=== PATIENT | male | born 1950 | race Two or more races ===

== ENCOUNTER 2022-10-31 20:37 | Inpatient (IN) | payer OTHER ==
[~2022-10-31] VITALS: Ht 175.3 cm; Wt 98.9 kg
[2022-10-31 20:00] VITALS: BP 147/78
[2022-10-31 20:37] VITALS: BP 147/78
[2022-10-31] MEDS ORDERED: HYDROCODONE/ACETAMINOPHEN 5/325MG TABLET PO PRN ×2 (23:15)
[2022-10-31] MEDS ORDERED: GUAIFENESIN-DM 200MG-20MG/10ML UDC PO PRN (23:15)
[2022-10-31] MEDS ORDERED: BISACODYL 10MG SUPP PR PRN (23:15)
[2022-10-31] MEDS ORDERED: MAGNESIUM/ALUMINUM HYDROXIDE/SIMETHICONE 30ML UDC PO PRN (23:15)
[2022-10-31] MEDS ORDERED: ACETAMINOPHEN 650MG/20.3ML UDC PO PRN (23:15)
[2022-11-01] MEDS ORDERED: SENNOSIDES/DOCUSATE SOD 8.6/50MG TABLET PO PRN (00:15)
[2022-11-01] MEDS ORDERED: MAGNESIUM OXIDE 400MG TABLET PO PRN (00:15)
[2022-11-01] MEDS ORDERED: ONDANSETRON HCL 4MG/2ML INJ IV PRN (00:15)
[2022-11-01] MEDS ORDERED: POLYVINYL ALCOHOL OPHTH DROPS 15ML BOTHEYE PRN (00:15)
[2022-11-01] MEDS ORDERED: THROAT LOZENGES-BENZOCAINE/MENTH/CETYLPYRD CL LOZENGES MM PRN (00:45)
[2022-11-01 05:37] LABS: BASOPHILS % 1.2 % (0.0-2.0); EOSINOPHILS % 6.3 % (0.0-5.0); HEMATOCRIT. 39.6 % (42.0-52.0); HEMOGLOBIN. 13.4 g/dL (14.0-18.0); MEAN CORPUSCULAR HEMOGLOBIN 30.4 pg (28.0-32.0); MONOCYTES % 7.8 % (2.0-8.0); NEUTROPHILS % 59.7 % (40.0-76.0); PLATELET 218 x1000/uL (130-400); RED CELL DISTRIBUTION WIDTH 14.3 % (11.6-14.6)
[2022-11-01 05:41] LABS: CHLORIDE 107 mEq/L (98-107)
[2022-11-01] MEDS ORDERED: INSULIN LISPRO 100 UNITS/ML SUBCUT SCH ×3 (07:00→13:00)
[2022-11-01 08:00] VITALS: BP 158/87
[2022-11-01] MEDS: HYDRALAZINE HCL 25MG TABLET PO SCH ×4 (08:52→21:13)
[2022-11-01] MEDS: ASPIRIN 81MG TABLET PO SCH (08:52)
[2022-11-01] MEDS: CLOPIDOGREL 75MG TABLET PO SCH (08:53)
[2022-11-01] MEDS: ENOXAPARIN 30MG/0.3ML SYR SUBCUT SCH ×2 (09:33→21:14)
[2022-11-01] MEDS ORDERED: NALOXONE HCL 0.4MG/ML VIAL IV PRN (10:00)
[2022-11-01] MEDS: BLOOD SUGAR DIAGNOSTIC STRIP TEST SCH ×3 (11:15→21:14)
[2022-11-01] MEDS: INSULIN LISPRO 100 UNITS/ML SUBCUT SCH ×4 (12:22→17:03)
[2022-11-01 20:00] VITALS: BP 157/76
[2022-11-01] MEDS: MELATONIN 3MG TABLET PO SCH (21:13)
[2022-11-01] MEDS: ATORVASTATIN CALCIUM 40MG TABLET PO SCH (21:13)
[2022-11-02] MEDS: BLOOD SUGAR DIAGNOSTIC STRIP TEST SCH ×4 (06:30→21:11)
[2022-11-02] MEDS: ENOXAPARIN 30MG/0.3ML SYR SUBCUT SCH ×2 (07:51→21:05)
[2022-11-02] MEDS: ASPIRIN 81MG TABLET PO SCH (07:52)
[2022-11-02] MEDS: CLOPIDOGREL 75MG TABLET PO SCH (07:52)
[2022-11-02] MEDS: HYDRALAZINE HCL 25MG TABLET PO SCH ×4 (07:52→21:05)
[2022-11-02] MEDS: INSULIN LISPRO 100 UNITS/ML SUBCUT SCH ×6 (07:59→17:33)
[2022-11-02 08:00] VITALS: BP 128/83
[2022-11-02 19:58] VITALS: BP 138/72
[2022-11-02] MEDS: MELATONIN 3MG TABLET PO SCH (21:04)
[2022-11-02] MEDS: ATORVASTATIN CALCIUM 40MG TABLET PO SCH (21:04)
[2022-11-03] MEDS: BLOOD SUGAR DIAGNOSTIC STRIP TEST SCH ×4 (07:05→21:07)
[2022-11-03 08:00] VITALS: BP 144/76
[2022-11-03] MEDS: INSULIN LISPRO 100 UNITS/ML SUBCUT SCH ×8 (08:00→17:52)
[2022-11-03] MEDS: ASPIRIN 81MG TABLET PO SCH (08:49)
[2022-11-03] MEDS: HYDRALAZINE HCL 25MG TABLET PO SCH ×4 (08:50→21:07)
[2022-11-03] MEDS: APIXABAN 5 MG TABLET PO SCH ×2 (08:50→17:12)
[2022-11-03 19:50] VITALS: BP 163/94
[2022-11-03] MEDS: MELATONIN 3MG TABLET PO SCH (21:06)
[2022-11-03] MEDS: ATORVASTATIN CALCIUM 40MG TABLET PO SCH (21:06)
[2022-11-04] MEDS: BLOOD SUGAR DIAGNOSTIC STRIP TEST SCH ×4 (07:00→21:00)
[2022-11-04] MEDS: INSULIN LISPRO 100 UNITS/ML SUBCUT SCH ×7 (07:46→21:07)
[2022-11-04 08:00] VITALS: BP 127/87
[2022-11-04] MEDS: APIXABAN 5 MG TABLET PO SCH ×2 (08:30→16:56)
[2022-11-04] MEDS: HYDRALAZINE HCL 25MG TABLET PO SCH ×4 (08:30→21:27)
[2022-11-04] MEDS: ASPIRIN 81MG TABLET PO SCH (08:30)
[2022-11-04 20:00] VITALS: BP 141/76
[2022-11-04] MEDS: ATORVASTATIN CALCIUM 40MG TABLET PO SCH (21:07)
[2022-11-04] MEDS: MELATONIN 3MG TABLET PO SCH (21:07)
[2022-11-05] MEDS: BLOOD SUGAR DIAGNOSTIC STRIP TEST SCH ×4 (06:05→20:41)
[2022-11-05] MEDS: HYDRALAZINE HCL 25MG TABLET PO SCH ×4 (06:26→20:40)
[2022-11-05] MEDS: INSULIN LISPRO 100 UNITS/ML SUBCUT SCH ×5 (06:30→17:00)
[2022-11-05 08:00] VITALS: BP 133/74
[2022-11-05] MEDS: ASPIRIN 81MG TABLET PO SCH (11:13)
[2022-11-05] MEDS: APIXABAN 5 MG TABLET PO SCH ×2 (11:13→17:27)
[2022-11-05] MEDS: POLYETHYLENE GLYCOL 3350 (17GM) 1 DOSE PACK PO PRN (13:22)
[2022-11-05 20:00] VITALS: BP 140/68
[2022-11-05] MEDS: MELATONIN 3MG TABLET PO SCH (20:40)
[2022-11-05] MEDS: ATORVASTATIN CALCIUM 40MG TABLET PO SCH (20:40)
[2022-11-06] MEDS: BLOOD SUGAR DIAGNOSTIC STRIP TEST SCH ×4 (06:57→21:00)
[2022-11-06] MEDS: INSULIN LISPRO 100 UNITS/ML SUBCUT SCH ×7 (06:59→21:23)
[2022-11-06 08:00] VITALS: BP 130/76
[2022-11-06] MEDS: ASPIRIN 81MG TABLET PO SCH (09:38)
[2022-11-06] MEDS: HYDRALAZINE HCL 25MG TABLET PO SCH ×4 (09:38→21:09)
[2022-11-06] MEDS: APIXABAN 5 MG TABLET PO SCH ×2 (09:38→18:03)
[2022-11-06] MEDS: POLYETHYLENE GLYCOL 3350 (17GM) 1 DOSE PACK PO PRN (09:39)
[2022-11-06 20:00] VITALS: BP 135/73
[2022-11-06] MEDS: MELATONIN 3MG TABLET PO SCH (21:08)
[2022-11-06] MEDS: ATORVASTATIN CALCIUM 40MG TABLET PO SCH (21:08)
[2022-11-07] MEDS: BLOOD SUGAR DIAGNOSTIC STRIP TEST SCH ×4 (06:30→21:00)
[2022-11-07] MEDS: INSULIN LISPRO 100 UNITS/ML SUBCUT SCH ×5 (07:25→17:05)
[2022-11-07 08:00] VITALS: BP 150/76
[2022-11-07] MEDS: ASPIRIN 81MG TABLET PO SCH (08:25)
[2022-11-07] MEDS: HYDRALAZINE HCL 25MG TABLET PO SCH ×4 (08:26→22:22)
[2022-11-07] MEDS: APIXABAN 5 MG TABLET PO SCH ×2 (08:26→17:02)
[2022-11-07 20:00] VITALS: BP 152/85
[2022-11-07] MEDS: MELATONIN 3MG TABLET PO SCH (22:21)
[2022-11-07] MEDS: ATORVASTATIN CALCIUM 40MG TABLET PO SCH (22:22)
[2022-11-08] MEDS: BLOOD SUGAR DIAGNOSTIC STRIP TEST SCH ×4 (06:43→21:00)
[2022-11-08 08:00] VITALS: BP 147/88
[2022-11-08] MEDS: INSULIN LISPRO 100 UNITS/ML SUBCUT SCH ×6 (08:24→17:00)
[2022-11-08] MEDS: ASPIRIN 81MG TABLET PO SCH (10:15)
[2022-11-08] MEDS: HYDRALAZINE HCL 25MG TABLET PO SCH ×4 (10:15→22:18)
[2022-11-08] MEDS: APIXABAN 5 MG TABLET PO SCH ×2 (10:15→16:51)
[2022-11-08 19:48] VITALS: BP 158/87
[2022-11-08] MEDS: ATORVASTATIN CALCIUM 40MG TABLET PO SCH (22:18)
[2022-11-08] MEDS: MELATONIN 3MG TABLET PO SCH (22:18)
[2022-11-09] MEDS: BLOOD SUGAR DIAGNOSTIC STRIP TEST SCH ×4 (06:30→21:00)
[2022-11-09] MEDS: INSULIN LISPRO 100 UNITS/ML SUBCUT SCH ×6 (07:00→18:04)
[2022-11-09 07:44] LABS: EOSINOPHILS % 6.3 % (0.0-5.0); HEMATOCRIT. 40.4 % (42.0-52.0); HEMOGLOBIN. 13.6 g/dL (14.0-18.0); LYMPHOCYTES % 22.4 % (20.0-50.0); MEAN CORPUSCULAR HEMOGLOBIN 30.4 pg (28.0-32.0); MEAN CORPUSCULAR VOLUME 90.1 fL (80.0-94.0); MEAN PLATELET VOLUME 8.9 fl (7.4-10.4); MONOCYTES % 8.9 % (2.0-8.0); NEUTROPHILS % 61.4 % (40.0-76.0); PLATELET 230 x1000/uL (130-400); RED BLOOD CELL COUNT 4.48 mill/uL (4.7-6.1)
[2022-11-09 07:45] LABS: CHLORIDE 105 mEq/L (98-107)
[2022-11-09 08:00] VITALS: BP 141/79
[2022-11-09] MEDS: APIXABAN 5 MG TABLET PO SCH ×2 (09:25→17:58)
[2022-11-09] MEDS: ASPIRIN 81MG TABLET PO SCH (09:25)
[2022-11-09] MEDS: HYDRALAZINE HCL 25MG TABLET PO SCH ×4 (09:25→21:00)
[2022-11-09 20:00] VITALS: BP 103/76
[2022-11-09] MEDS: MELATONIN 3MG TABLET PO SCH (21:17)
[2022-11-09] MEDS: ATORVASTATIN CALCIUM 40MG TABLET PO SCH (21:17)
[2022-11-10] MEDS: BLOOD SUGAR DIAGNOSTIC STRIP TEST SCH ×4 (06:16→21:24)
[2022-11-10] MEDS: INSULIN LISPRO 100 UNITS/ML SUBCUT SCH ×6 (06:41→18:51)
[2022-11-10 08:00] VITALS: BP 140/84
[2022-11-10] MEDS: APIXABAN 5 MG TABLET PO SCH ×2 (09:58→17:59)
[2022-11-10] MEDS: ASPIRIN 81MG TABLET PO SCH (09:58)
[2022-11-10] MEDS: HYDRALAZINE HCL 25MG TABLET PO SCH ×4 (09:59→21:23)
[2022-11-10 20:00] VITALS: BP 133/75
[2022-11-10] MEDS: DIPHENHYDRAMINE 25MG CAPSULE PO PRN ×2 (21:22→21:23)
[2022-11-10] MEDS: MELATONIN 3MG TABLET PO SCH (21:24)
[2022-11-10] MEDS: ATORVASTATIN CALCIUM 40MG TABLET PO SCH (21:24)
[2022-11-11] MEDS: BLOOD SUGAR DIAGNOSTIC STRIP TEST SCH ×4 (06:18→21:00)
[2022-11-11] MEDS: INSULIN LISPRO 100 UNITS/ML SUBCUT SCH ×6 (06:19→18:16)
[2022-11-11 08:00] VITALS: BP 141/75
[2022-11-11] MEDS: APIXABAN 5 MG TABLET PO SCH ×2 (09:26→17:38)
[2022-11-11] MEDS: ASPIRIN 81MG TABLET PO SCH (09:26)
[2022-11-11] MEDS: HYDRALAZINE HCL 25MG TABLET PO SCH ×4 (09:27→21:04)
[2022-11-11 20:00] VITALS: BP 143/80
[2022-11-11] MEDS: ATORVASTATIN CALCIUM 40MG TABLET PO SCH (21:05)
[2022-11-11] MEDS: MELATONIN 3MG TABLET PO SCH (21:05)
[2022-11-12] MEDS: BLOOD SUGAR DIAGNOSTIC STRIP TEST SCH (07:00)
[2022-11-12 08:00] VITALS: BP 152/92
[2022-11-12] MEDS: INSULIN LISPRO 100 UNITS/ML SUBCUT SCH ×2 (08:12→08:14)
[2022-11-12] MEDS: HYDRALAZINE HCL 25MG TABLET PO SCH (08:13)
[2022-11-12] MEDS: APIXABAN 5 MG TABLET PO SCH (08:13)
[2022-11-12] MEDS: ASPIRIN 81MG TABLET PO SCH (08:13)
[2022-11-12 10:24] VITALS: BP 135/80
[2022-11-12] MEDS ORDERED: HYDR-4134 PO (11:10)
[2022-11-12] MEDS ORDERED: APIX5TAB PO (11:10)
[2022-11-12] MEDS ORDERED: LIP40 PO (11:10)
[2022-11-12] MEDS ORDERED: ASPI-1160 PO (11:10)
== END 2022-11-12 11:40 | disposition home health service (06) | DRG 65 ==
PROVIDERS: ADMIT Psychiatry & Neurology Neurology; ATTEND Hospitalist
DX: I63.9 Cerebral infarction, unspecified (principal); I69.351 Hemiplegia and hemiparesis following cerebral infarction affecting right dominant side; D63.8 Anemia in other chronic diseases classified elsewhere; E11.9 Type 2 diabetes mellitus without complications; E78.5 Hyperlipidemia, unspecified; F17.210 Nicotine dependence, cigarettes, uncomplicated; I44.1 Atrioventricular block, second degree; R47.01 Aphasia; R47.1 Dysarthria and anarthria; R53.1 Weakness; R00.1 Bradycardia, unspecified; R29.6 Repeated falls; I10 Essential (primary) hypertension; I48.0 Paroxysmal atrial fibrillation; Z79.01 Long term (current) use of anticoagulants; Z91.81 History of falling; Z98.1 Arthrodesis status; Z79.84 Long term (current) use of oral hypoglycemic drugs; Z79.82 Long term (current) use of aspirin; Z79.4 Long term (current) use of insulin
CPT/HCPCS: 36415; 80048; 80053; 82962; 83036; 85025; 92523; 92610; 93005; 93970; 97110; 97112; 97116; 97162; 97166; 97530; 97535; J1650; J1815; Q0163